=== PATIENT | male | born 1950 | race Caucasian/White ===

== ENCOUNTER 2016-02-24 16:50 | Emergency (ER) ==
[2016-02-24] MEDS ORDERED: ASPIRIN PO STA (17:02)
--- NOTE | 2016-02-24 17:10 | PROVIDER DOCUMENTATION ---
HPI-Chest Pain - General Source: patient - History of Present Illness-CP Location: reports: epigastric Chest Pain Radiation: reports: other (abdomen) Quality of Pain: reports: aching, dull Severity in ED: moderate Onset/Duration: abrupt, this afternoon Timing: still present, improving Context/Activities at Onset: reports: none Modifying Factors: improves with: nothing Associated Symptoms: denies: shortness of breath Aspirin Treatment Today: 325 mg x 1, provided by ED Prior Chest Pain/Cardiac Workup: reports: angina Similar Symptoms Previously?: Yes Recently Seen Here or By Another Healthcare Provider: No <Bry Barry - Last Filed: 02/24/16 17:52> <Jennifer Georges - Last Filed: 02/24/16 21:21> - General Stated Complaint: chest pain Time Seen by Provider: 02/24/16 17:01 Allergies/Adverse Reactions: Patient Allergies Allergy/AdvReac Type Severity Reaction Status Date / Time No Known Allergies Allergy Verified 09/17/14 15:50 Home Medications: Alprazolam [Xanax] 1 mg PO DAILY PRN 09/17/14 Atenolol 50 mg PO DAILY 09/17/14 Methylphenidate HCl [Ritalin] 20 mg PO BID 09/17/14 Oxycodone HCl/Acetaminophen [Oxycodon-Acetaminophen 7.5-325] 1 each PO TID PRN 09/17/14 Lactulose 30 ml PO DIRECTED 02/24/16 - History of Present Illness-CP Nature of Presenting Problem: patient is a 65 y/o M that presents to the ER after having lower chest/ epigastric pain that radiated to abdomen. patient denies shortness of breath, n/ v/d, or back pain, history of cad with cabg 21 yrs ago and gastric bypass 2 yrs ago (Bry Barry) Review of Systems - Adult - REVIEW OF SYSTEMS - ADULT Constitutional: denies: chills, fever Eyes: denies: decreased vision, blurred vision, double vision Ears, Nose, Mouth & Throat: denies: ear pain, throat pain, throat swelling Cardiovascular: reports: chest pain. denies: palpitations, syncope Respiratory: denies: cough, shortness of breath, wheezing Gastrointestinal: reports: abdominal pain. denies: diarrhea, nausea, vomiting Genitourinary: reports: no symptoms reported Musculoskeletal: reports: no symptoms reported Integumentary: reports: no symptoms reported Neurological: reports: no symptoms reported Psychiatric: reports: no symptoms reported Endocrine: reports: no symptoms reported Hematologic/Lymphatic: reports: no symptoms reported Allergic/Immunologic: reports: no symptoms reported All Other Systems: Reviewed and Negative <Bry Barry - Last Filed: 02/24/16 17:52> Past History - Adult - PAST MEDICAL HISTORY-ADULT Review of Records: reports: Old Records Reviewed, Nursing Assessment Review, Medications Reviewed Cardiovascular: reports: CAD, HTN Musculoskeletal: reports: arthritis Neurological: reports: dementia - PRIOR SURGERIES/PROCEDURES Surgical/Procedure History: reports: CABG, cholecystectomy, tonsillectomy, orthopedic (extremity) (RT ankle), back/neck (back only), gastric bypass - IMMUNIZATION STATUS Childhood Immunizations: See Nurse Assessment Flu Vaccine: See Nurse Assessment - FAMILY HISTORY Family History: reviewed, not pertinent - SOCIAL HISTORY Smoking: quit greater than 1 year, cigarettes Alcohol Use Frequency: rarely Living Situation: family <Bry Barry - Last Filed: 02/24/16 17:52> Physical Exam-General - PHYSICAL EXAM-ADULT Initial Vital Signs Reviewed: Yes - CONSTITUTIONAL General Appearance: alert, no apparent distress - EYES Eyes: PERRL/EOMI, pink conjunctivae - HEAD, EARS, NOSE, MOUTH & THROAT HENMT: normocephalic/atraumatic, moist mucous membranes, normal ENT inspection - SKIN Integumentary: normal color, normal turgor, warm/dry - NEUROLOGIC Neurologic: grossly normal, no motor/sensory deficits - PSYCHIATRIC Psych/Mental Status: normal mood/affect, normal thought content, normal thought process, oriented x 3 <Bry Barry - Last Filed: 02/24/16 17:52> Progress - EKG 1 Time of EKG reading by physician:: 16:55 EKG Read and Signed by:: Erinn Kelly EKG Interpretation (*Must complete 3 of following elements*): Abnormal Rate: 58 Rhythm: sinus bradycardia [place]: normal QRS: normal ST Wave: non-specific ST changes - CHANGE OF SHIFT REPORT (ED Provider) Report Given and Care Transferred to:: Time of Transfer: 17:50 Items Pending: Labs, CT/MRI Results <Bry Barry - Last Filed: 02/24/16 17:52> - EKG 1 Time of EKG reading by physician:: 19:21 EKG Read and Signed by:: Sebastien Cerna Rate: 51 Rhythm: SINUS [place] - CT/MRI 1 CT Study: Abdomen Impression: Normal CT Results: constipation - CONSULTS/PCP/HOSPITALIST Notification #1 *Consult/PCP/Hospitalist*: Dr. Walsh Time Discussed: 20:38 Consult Disposition: other (accepting pt at ) <Jennifer Georges - Last Filed: 02/24/16 21:21> - PLAN OF CARE/RESULTS Progress/Plan/Lab Results: plan of care-cardiac work up (Bry Barry) plan of care: labs, imaging,transfer to Laboratory Tests 02/24/16 02/24/16 02/24/16 17:07 17:07 17:07 WBC 10.74 RBC 4.88 Hgb 14.9 Hct 44.3 MCV 90.8 MCH 30.5 MCHC 33.6 RDW Std Deviation 12.9 Plt Count 272 MPV 9.8 Immature Gran % (Auto) 0.0 Neut % (Auto) 64.5 Lymph % (Auto) 22.6 [place] % (Auto) 8.1 Eos % (Auto) 4.1 Baso % (Auto) 0.7 Immature Gran # (Auto) 0.00 Neut # (Auto) 6.92 H Lymph # (Auto) 2.43 [place] # (Auto) 0.87 H Eos # (Auto) 0.44 Baso # (Auto) 0.08 PT INR PTT (Actin FS) D-Dimer 0.18 Sodium 142 Potassium 3.6 Chloride 101 Carbon Dioxide 26 Anion Gap 15 BUN 9 Creatinine 0.8 Estimated GFR/1.73 m2 > 60 BUN/Creatinine Ratio 11 Glucose 109 H Calculated Osmolality 282 Calcium 8.6 L Magnesium 2.0 Total Bilirubin 0.30 AST 27 ALT 15 Alkaline Phosphatase 96 Creatine Kinase 138 Troponin T Kuv-[id number]-Xyqlphtztut Pept Total Protein 6.9 Albumin 4.3 Globulin 2.6 Albumin/Globulin Ratio 1.7 02/24/16 02/24/16 02/24/16 17:07 17:07 17:07 WBC RBC Hgb Hct MCV MCH MCHC RDW Std Deviation Plt Count MPV Immature Gran % (Auto) Neut % (Auto) Lymph % (Auto) [place] % (Auto) Eos % (Auto) Baso % (Auto) Immature Gran # (Auto) Neut # (Auto) Lymph # (Auto) [place] # (Auto) Eos # (Auto) Baso # (Auto) PT 10.9 INR 1.03 PTT (Actin FS) 25.7 D-Dimer Sodium Potassium Chloride Carbon Dioxide Anion Gap BUN Creatinine Estimated GFR/1.73 m2 BUN/Creatinine Ratio Glucose Calculated Osmolality Calcium Magnesium Total Bilirubin AST ALT Alkaline Phosphatase Creatine Kinase Troponin T 0.089 Nkk-[id number]-Abpusdimkgh Pept 774 H Total Protein Albumin Globulin Albumin/Globulin Ratio 02/24/16 02/24/16 19:16 19:16 WBC RBC Hgb Hct MCV MCH MCHC RDW Std Deviation Plt Count MPV Immature Gran % (Auto) Neut % (Auto) Lymph % (Auto) [place] % (Auto) Eos % (Auto) Baso % (Auto) Immature Gran # (Auto) Neut # (Auto) Lymph # (Auto) [place] # (Auto) Eos # (Auto) Baso # (Auto) PT INR PTT (Actin FS) D-Dimer Sodium Potassium Chloride Carbon Dioxide Anion Gap BUN Creatinine Estimated GFR/1.73 m2 BUN/Creatinine Ratio Glucose Calculated Osmolality Calcium Magnesium Total Bilirubin AST ALT Alkaline Phosphatase Creatine Kinase 630 H D Troponin T 0.480 H* D [id number] Pept Total Protein Albumin Globulin Albumin/Globulin Ratio Orders Category Date Time Status Cardiac Monitoring DIRECTED Care 02/24/16 17:02 Active Saline Loc NOW Care 02/24/16 17:02 Active ABD/PELVIS/PULM ARTERIES [CT] Stat Exams 02/24/16 17:02 Taken CHEST-PORTABLE [RAD] Stat Exams 02/24/16 17:02 Draft CBC WITH ELECTRONIC DIFF [HEME] Stat Lab 02/24/16 17:07 Completed CK PROFILE [SP CHEM] Stat Lab 02/24/16 17:07 Completed CK PROFILE [SP CHEM] Stat Lab 02/24/16 19:16 Results COMPREHENSIVE METABOLIC PANEL [CHEM] Stat Lab 02/24/16 17:07 Completed D-DIMER [CHEM] Stat Lab 02/24/16 17:07 Completed MAGNESIUM [CHEM] Stat Lab 02/24/16 17:07 Completed PRO B-NATRIURETIC PEPTIDE Stat Lab 02/24/16 17:07 Completed PROTIME WITH INR [COAG] Stat Lab 02/24/16 17:07 Completed PTT [COAG] Stat Lab 02/24/16 17:07 Completed TROPONIN T Stat Lab 02/24/16 17:07 Completed TROPONIN T Stat Lab 02/24/16 19:16 Completed Aspirin Med 02/24/16 17:02 Discontinued 325 mg PO STAT STA EKG [EKG] Stat Ther 02/24/16 16:51 Ordered EKG [EKG] Stat Ther 02/24/16 18:48 Ordered Vital Signs - 24 hr 02/24/16 02/24/16 02/24/16 17:08 17:51 18:56 Temperature 98.4 F Pulse Rate 56 L 57 L 50 L Respiratory 18 13 21 Rate Blood Pressure 220/97 200/93 191/79 O2 Sat by Pulse 98 95 93 L Oximetry (Jennifer Georges) Departure <Bry Barry - Last Filed: 02/24/16 17:52> - Departure Time of Disposition Order: 20:52 Certified Medical Emergency: Emergent <Jennifer Georges - Last Filed: 02/24/16 21:21> - Departure DIAGNOSIS: NSTEMI (non-ST elevated myocardial infarction) Disposition: [facility] 02 Condition: Stable Referrals: Isabela Martinez MD [Primary Care Provider] - Attestation - Scribe Verification/Attestation Scribe:: Bry Barry Acting as Scribe for:: Erinn Kelly Scribe documention review:: This chart was documented by a scribe and accurately reflects the service the provider performed and the decisions made by the provider. <Bry Barry - Last Filed: 02/24/16 17:52> - Scribe Verification/Attestation Scribe:: Jennifer Georges Acting as Scribe for:: Sebastien Cerna Scribe documention review:: This chart was documented by a scribe and accurately reflects the service the provider performed and the decisions made by the provider. <Jennifer Georges - Last Filed: 02/24/16 21:21> Physician Attestation - Physician Attestation I, the provider, attest to the following statement:: Erinn Kelly Physician documentation Attestation:: This documentation recorded by the scribe accurately reflects the service I personally performed and the decisions made by me. <Bry Barry - Last Filed: 02/24/16 17:52>
[2016-02-24 17:15] LABS: MANUAL DIFF NEEDED? NO
[2016-02-24 17:20] LABS: BASO% 0.7 % (0.0-0.8); EOS# 0.44 X1000 (0.0-0.7); EOS% 4.1 % (0.0-10.0); HEMATOCRIT 44.3 % (42.0-52.0); HEMOGLOBIN 14.9 g/dL (14.0-18.0); LYMPH# 2.43 X1000 (1.2-3.4); LYMPH% 22.6 % (20.5-51.1); MCH 30.5 PG (27-31); MCHC 33.6 g/dL (33-37); MCV 90.8 FL (81-99); MONO# 0.87 X1000 (0.11-0.59); MONO% 8.1 % (1.7-9.3); MPV 9.8 FL (7.4-10.4); NEUT% 64.5 % (42.2-75.2); PLT 272 X1000 (130-400); RBC 4.88 XMIL (4.7-6.1)
[2016-02-24 17:29] LABS: INR 1.03; PROTIME 10.9 Seconds (9.2-11.7); PTT 25.7 Seconds (22.0-36.0)
[2016-02-24 17:45] LABS: AGAP 15; ALBUMIN 4.3 g/dL (3.5-5.0); ALKALINE PHOSPHATASE 96 U/L (32-122); BUN 9 mg/dL (8-22); CALCIUM 8.6 mg/dL (8.8-10.2); CHLORIDE 101 mmol/L (98-107); CK PROFILE 138 U/L (24-204); COSMO 282; GOT 27 U/L (10-34); GPT 15 U/L (10-44); POTASSIUM 3.6 mmol/L (3.5-5.1); SODIUM 142 mmol/L (136-145); TCO2 26 mmol/L (25-35); TOTAL PROTEIN 6.9 g/dL (6.3-8.3)
--- NOTE | 2016-02-24 18:20 | Diag Imaging Result Document ---
PROCEDURE NAME: CHEST-PORTABLE - 02/24/2016 PORTABLE CHEST: FINDINGS: Compared to 02/22/2015. There are sternal wires and surgical clips. The heart is mildly prominent. The vessels are not distended. No pneumonia. No pleural effusions identified. Old injury to the right clavicle. IMPRESSION: No acute abnormality.
[2016-02-24] MEDS ORDERED: NITROGLYCERIN SL ONE (20:05)
[2016-02-24] MEDS ORDERED: HEPARIN IV ONE (20:06)
[2016-02-24] MEDS ORDERED: NITROGLYCERIN TOP ONE (20:06)
[2016-02-24] MEDS ORDERED: ZOFRAN IV ONE (20:07)
[2016-02-24] MEDS ORDERED: MORPHINE IV ONE (20:07)
[2016-02-24] MEDS ORDERED: HEPARIN 25,000 UNITS/D5W 250 ML IV SCH (20:15)
[2016-02-24 20:17] LABS: CK-MB 37.87 ng/mL (0.0-5.0)
[2016-02-24 21:20] VITALS: BP 153/86
--- NOTE | 2016-02-25 06:19 | EKG Report ---
Test Performed on : 02/24/2016 4:54:12 PM Test Reason : chest pain Blood Pressure : / mmHG Vent. Rate : 055 BPM Atrial Rate : 055 BPM P-R Int : 168 ms QRS Dur : 100 ms QT Int : 480 ms P-R-T Axes : 023 031 120 degrees QTc Int : 459 ms Sinus bradycardia. Inferior-posterior infarct , possibly acute ACUTE NM / STEMI Consider right ventricular involvement in acute inferior infarct Abnormal ECG When compared with ECG of 17-SEP-2014 16:03, Inferior-posterior infarct is now present ST now depressed in Anterior leads T wave inversion now evident in Inferior leads Nonspecific T wave abnormality, worse in Lateral leads Unconfirmed Result
--- NOTE | 2016-02-25 06:23 | EKG Report ---
Test Performed on : 02/24/2016 7:04:25 PM Test Reason : cp Blood Pressure : / mmHG Vent. Rate : 051 BPM Atrial Rate : 051 BPM P-R Int : 164 ms QRS Dur : 094 ms QT Int : 504 ms P-R-T Axes : 017 023 266 degrees QTc Int : 464 ms Sinus bradycardia. Nonspecific ST and T wave abnormality Prolonged QT Abnormal ECG When compared with ECG of 24-FEB-2016 16:55, (Unconfirmed) Nonspecific T wave abnormality has replaced inverted T waves in Lateral leads Unconfirmed Result
--- NOTE | 2016-02-25 08:16 | Diag Imaging Result Document ---
PROCEDURE NAME: ABD/PELVIS/PULM ARTERIES - 02/24/2016 CT OF THE CHEST WITH INTRAVENOUS CONTRAST: FINDINGS: There are no filling defects present in the pulmonary arteries. The left ventricle and atrium are enlarged. There is insufficient contrast opacification of the aorta to evaluate the lumen; however, there is no evidence of aneurysm. There is extensive coronary calcification. No evidence of acute pulmonary parenchymal disease is present. There is no evidence of significant adenopathy or abnormal fluid collections. IMPRESSION: No evidence of pulmonary emboli. CT OF THE ABDOMEN WITH INTRAVENOUS CONTRAST: FINDINGS: There is no evidence of abdominal aortic aneurysm; however, there is atherosclerotic calcification in the aorta and iliac arteries. The proximal right common iliac artery is slightly distended to 17 mm. The mesenteric vessels and renal arteries are patent. There is some atherosclerotic plaque formation present in the proximal superior mesenteric artery. There are granulomatous calcifications throughout the liver and spleen. The adrenal glands are not enlarged; however, there is a granuloma in the left adrenal gland. The pancreas is unremarkable in appearance. There is no evidence of significant adenopathy. There has been previous cholecystectomy. The bowel is not distended. The appendix is normal in caliber. The kidneys are without evidence of hydronephrosis or mass. CT OF THE PELVIS WITH INTRAVENOUS CONTRAST: FINDINGS: There is diverticulosis in the distal descending and sigmoid colon without evidence of acute diverticulitis. There is a moderate amount of stool present in the distal colon. There is no evidence of free fluid. IMPRESSION: Mild constipation.
== END 2016-02-24 21:12 | disposition short-term general hospital (02) ==
LOC: ED 16:50
DX: I21.4 Non-ST elevation (NSTEMI) myocardial infarction (principal); R94.31 Abnormal electrocardiogram [ECG] [EKG]; R10.13 Epigastric pain; R07.89 Other chest pain; K59.00 Constipation, unspecified; I25.10 Atherosclerotic heart disease of native coronary artery without angina pectoris; I10 Essential (primary) hypertension; M19.90 Unspecified osteoarthritis, unspecified site; Z79.899 Other long term (current) drug therapy; Z95.1 Presence of aortocoronary bypass graft; Z98.84 Bariatric surgery status; Z87.891 Personal history of nicotine dependence
CPT/HCPCS: 71010; 71275; 74177; 80053; 82550; 82553; 83735; 83880; 84484; 85025; 85379; 85610; 85730; 93005; 96365; 96375; J1644; J2270; J2405; Q9967